=== PATIENT | male | born 1970 | race African-American/Black ===

== ENCOUNTER → 2018-06-07 | Outpatient (CLI) | payer OTHER ==
[~2018-06-07] MED LIST: METHACHOLINE KIT (J7674) INH ONE
--- NOTE | 2018-06-07 07:26 | PFTRPT ---
Height: 73.00 Inches Weight: 215.00 Lbs BSA: 2.22 Diagnosis: R06.00 DATE OF PROCEDURE: 06/07/2018 ORDERED BY: Samy Torrez PA-C Spirometry: Study of excellent technical quality. Forced vital capacity normal. FEV1 in proportion. Obstructive index is, therefore, normal. Flow Volume Loop: Expiratory limb of the flow volume loop is normal. Lung Volumes: Total lung capacity normal. Residual volume is in proportion. Diffusing Capacity: Diffusing capacity is minimally reduced but is appropriate for alveolar volume. Hemoglobin: Hemoglobin acceptable at 13.7. Airway Mechanics: Airway resistance and conductance are normal. IMPRESSION: Minimal reduction in the absolute diffusing capacity. Please correlate clinically. MTDD
--- NOTE | 2018-06-07 08:09 | PFTRPT ---
Height: 73.00 Inches Weight: 215.00 Lbs BSA: 2.22 Diagnosis: R06.00 DATE OF PROCEDURE: 06/07/2018 ORDERED BY: SUAD Kilgore INTERPRETATION: Study of excellent technical quality. Under protocol, methacholine was administered. Even after a total of 25 mg or 188.875 CDUs, no provocation dose ever achieved. IMPRESSION: Negative methacholine challenge study. MTDD
== END ==
LOC: M CARPUL 06:39
PROVIDERS: ATTEND Physician Assistant
DX: R06.00 Dyspnea, unspecified (principal)
CPT/HCPCS: 36415; 85018; 94010; 94070; 94726; 94729; J7674

== ENCOUNTER → 2018-07-19 | Outpatient (CLI) | payer OTHER ==
--- NOTE | 2018-07-19 15:37 | REP ---
HISTORY: Knee pain. COMPARISON: None. There is soft tissue calcifications in the proximal calf of uncertain etiology. If the patient has been involved in trauma in the past this could be secondary to myositis ossificans, but would need to be correlated clinically. These calcifications are only partially imaged. The examination is otherwise unremarkable. Electronically Signed by Moose Bernal DO 07/19/2018 03:50 P
== END ==
LOC: M WUC 11:50
PROVIDERS: ATTEND Physician Assistant
DX: M25.562 Pain in left knee (principal)

== ENCOUNTER 2021-01-27 16:04 | Observation (INO) | payer OTHER ==
[~2021-01-27] VITALS: Ht 182.9 cm; Wt 103.0 kg
--- OUTSIDE RECORDS SUMMARY | 2021-01-27 16:13 | CCD ---
Author Author [facility] Organization [facility] Address Unknown Phone Unavailable Care Team Providers Care Instructional Technology Coordinator Name Role Phone Treasure, Rafael PA Unavailable Unavailable Treasure, Rafael PA Unavailable Unavailable Treasure, Rafael PA Unavailable Unavailable Treasure, Rafael PA Unavailable Unavailable Treasure, Rafael PA Unavailable Unavailable Treasure, Rafael PA Unavailable Unavailable Treasure, Rafael PA Unavailable Unavailable Treasure, Rafael PA Unavailable Unavailable Treasure, Rafael PA Unavailable Unavailable Treasure, Rafael PA Unavailable Unavailable Treasure, Rafael PA Unavailable Unavailable Treasure, Rafael PA Unavailable Unavailable Treasure, Rafael PA Unavailable Unavailable Treasure, Rafael PA Unavailable Unavailable Treasure, Rafael PA Unavailable Unavailable Treasure, Rafael PA Unavailable Unavailable Treasure, Rafael PA Unavailable Unavailable Treasure, Rafael PA Unavailable Unavailable Treasure, Rafael PA Unavailable Unavailable Treasure, Rafael PA Unavailable Unavailable Treasure, Rafael PA Unavailable Unavailable Treasure, Rafael PA Unavailable Unavailable Treasure, Rafael PA Unavailable Unavailable Treasure, Rafael PA Unavailable Unavailable Treasure, Rafael PA Unavailable Unavailable Treasure, Arfael PA Unavailable Unavailable Treasure, Rafael PA Unavailable Unavailable Treasure, Rafael PA Unavailable Unavailable Treasure, Rafael PA Unavailable Unavailable Treasure, Rafael PA Unavailable Unavailable Treasure, Rafael PA Unavailable Unavailable Treasure, Rafael PA Unavailable Unavailable Treasure, Rafael PA Unavailable Unavailable Treasure, Rafael PA Unavailable Unavailable Treasure, Rafael PA Unavailable Unavailable Treasure, Rafael PA Unavailable Unavailable Treasure, Rafael PA Unavailable Unavailable Treasure, Rafael PA Unavailable Unavailable Treasure, Rafael PA Unavailable Unavailable Treasure, Rafael PA Unavailable Unavailable Traesure, Rafael PA Unavailable Unavailable Treasure, Rafael PA Unavailable Unavailable Treasure, Rafael PA Unavailable Unavailable Treasure, Rafael PA Unavailable Unavailable Treasure, Rafael PA Unavailable Unavailable Treasure, Rafael PA Unavailable Unavailable Treasure, Rafael PA Unavailable Unavailable Treasure, Rafael PA Unavailable Unavailable Treasure, Rafael PA Unavailable Unavailable Treasure, Rafael PA Unavailable Unavailable Treasure, Rafael PA Unavailable Unavailable Treasure, Rafael PA Unavailable Unavailable Treasure, Rafael PA Unavailable Unavailable Treasure, Rafael PA Unavailable Unavailable INES, JANNETH PA Unavailable Unavailable INES, JANNETH PA Unavailable Unavailable INES, JANNETH PA Unavailable Unavailable INES, JANNETH PA Unavailable Unavailable INES, JANNETH PA Unavailable Unavailable INES, JANNETH PA Unavailable Unavailable INES, JANNETH PA Unavailable Unavailable INES, JANNETH PA Unavailable Unavailable INES, JANNETH PA Unavailable Unavailable INES, JANNETH PA Unavailable Unavailable INES, JANNETH PA Unavailable Unavailable INES, JANNETH PA Unavailable Unavailable INES, JANNETH PA Unavailable Unavailable INES, JANNETH PA Unavailable Unavailable INES, JANNETH PA Unavailable Unavailable INES, JANNETH PA Unavailable Unavailable INES, JANNETH PA Unavailable Unavailable INES, JANNETH PA Unavailable Unavailable INES, JANNETH PA Unavailable Unavailable INES, JANNETH PA Unavailable Unavailable INES, JANNETH PA Unavailable Unavailable INES, JANNETH PA Unavailable Unavailable INES, JANNETH PA Unavailable Unavailable INES, JANNETH PA Unavailable Unavailable INES, JANNETH PA Unavailable Unavailable INES, JANNETH PA Unavailable Unavailable INES, JANNETH PA Unavailable Unavailable INES, JANNETH PA Unavailable Unavailable INES, JANNETH PA Unavailable Unavailable INES, JANNETH PA Unavailable Unavailable INES, JANNETH PA Unavailable Unavailable INES, JANNETH PA Unavailable Unavailable INES, JANNETH PA Unavailable Unavailable INES, JANNETH PA Unavailable Unavailable INES, JANNETH PA Unavailable Unavailable INES, JANNETH PA Unavailable Unavailable Re-disclosure Warning The records that you are about to access may contain information from federally-assisted alcohol or drug abuse programs. If such information is present, then the following federally mandated warning applies: This information has been disclosed to you from records protected by federal confidentiality rules (42 CFR part 2). The federal rules prohibit you from making any further disclosure of this information unless further disclosure is expressly permitted by the written consent of the person to whom it pertains or as otherwise permitted by 42 CFR part 2. A general authorization for the release of medical or other information is NOT sufficient for this purpose. The Federal rules restrict any use of the information to criminally investigate or prosecute any alcohol or drug abuse patient.The records that you are about to access may contain highly sensitive health information, the redisclosure of which is protected by Article 27-F of the [facility] Public Health law. If you continue you may have access to information: Regarding HIV / AIDS; Provided by facilities licensed or operated by the [facility] Office of Mental Health; or Provided by the [facility] Office for People With Developmental Disabilities. If such information is present, then the following [facility] mandated warning applies: This information has been disclosed to you from confidential records which are protected by state law. State law prohibits you from making any further disclosure of this information without the specific written consent of the person to whom it pertains, or as otherwise permitted by law. Any unauthorized further disclosure in violation of state law may result in a fine or fdc sentence or both. A general authorization for the release of medical or other information is NOT sufficient authorization for further disc losure. Family History Family Member Name Family Member Gender Family Member Status Date o f Status Description Data Source(s) Unknown Male Problem [facility] ([facility]) Unknown Unknown Problem [facility] ([facility], [facility]) Encounters Encounter Providers Location Date Indications Data Source(s ) Outpatient Attender: JANNETH peters 09/30/2020 03:15:00 PM EDT [facility] ([facility]) Outpatient Attender: Rafael SAMANIEGO Family Medicine [facility] 09/08/2020 10:00:00 AM EDT [facility] ([facility]) Medications Medication Brand Name Start Date Product Form Dose Route Admi nistrative Instructions Pharmacy Instructions Status Indications Reaction Description Data Source(s) 0.005 % 09/30/2020 12:00:00 AM EDT drops 2 INSTILL 1 DROP INTO BOTH EYES EVERY NIGHT INSTILL 1 DROP INTO BOTH EYES EVERY NIGHT SOLD: 09/30/2020 [facility] 0.005 % 09/30/2020 12:00:00 AM EDT drops 2 INSTILL 1 DROP INTO BOTH EYES EVERY NIGHT INSTILL 1 DROP INTO BOTH EYES EVERY NIGHT SOLD: 11/01/2020 [facility] Methylprednisolone Sodium Succinate To 125 MG 09/30/2020 1 2:00:00 AM EDT completed [facility] ([facility], [facility]) Medication administered onsite 20 mg 09/30/2020 12:00:00 AM EDT tablet 6 TAKE ONE TABLET BY MOUTH TWICE A DAY FOR 3 DAYS TAKE ONE TABLET BY MOUTH TWICE A DAY FOR 3 DAYS SOLD: 2020 [facility] Prednisone 20 MG Oral Tablet Prednisone 09/30/2020 12:00:00 AM EDT ORAL active [facility] ([facility]) 0.005 % 08/10/2020 12:00:00 AM EDT drops 2 INSTILL ONE DROP IN EACH EYE AT BEDTIME INSTILL ONE DROP IN EACH EYE AT BEDTIME SOLD: 08/17/2020 [facility] 0.005 % 07/22/2020 12:00:00 AM EDT drops 2 INSTILL 1 DROP IN EACH EYE AT BEDTIME INSTILL 1 DROP IN EACH EYE AT BEDTIME SOLD: 07/22/2020 [facility] Insurance Providers Payer name Policy type / Coverage type Policy ID Covered alliance party ID Covered alliance party's relationship to holm Policy Holm Plan Information [facility] [employer] [id number] Self [id number] [facility] [id number] [facility] [employer] [id number] Self [id number] [facility] ACTIVE DUTY [id number] SP [id number] [facility] (2018) Health Maintenance Organization (O) [id number] Self [id number] Problems, Conditions, and Diagnoses No Information Surgeries/Procedures Procedure Description Date Indications Data Source(s) Therapeutic, Prophylactic Or Diagnostic Injection Subq/Im 09/30/2020 12:00:00 AM [facility]T [facility]) OFFICE OUTPATIENT VISIT 15 MINUTES 09/30/2020 12:00:00 AM EDT [facility]) OFFICE OUTPATIENT VISIT 25 MINUTES 09/08/2020 12:00:00 AM EDT [facility] Results No Information Social History Code Duration Value Status Description Data Source(s ) Smoking 09/08/2020 12:00:00 AM EDT Patient has never smoked co mpleted Patient has never smoked [facility] ([facility]) Vital Signs ID Date Data Source UNK Name Value Range Interpretation Code Description Data Source(s) Systolic blood pressure 125 mm[Hg] 125 mm[Hg] [facility] Diastolic blood pressure 73 mm[Hg] 73 mm[Hg] [facility]) Oxygen saturation in Arterial blood by Pulse oximetry 97 % 97 % [facility]) Respiratory rate 16 /min 16 /min [facility] ( [facility]) Heart rate 83 /min 83 /min [facility]) Body temperature 96.6 [degF] 96.6 [degF] [facility] ([facility], [facility]) Body weight 223.00 [lb_av] 223.00 [lb_av] [facility] ([facility], [facility]) Body height 73 [in_i] 73 [in_i] [facility] ([facility]) 6'1" Body mass index (BMI) [Ratio] 29.4 kg/m2 29.4 k g/m2 [facility] ([facility]) Systolic blood pressure 118 mm[Hg] 118 mm[Hg] [facility] Diastolic blood pressure 78 mm[Hg] 78 mm[Hg] [facility] ([facility]) Body height 72.0 [in_i] 72.0 [in_i] [facility] ([facility]) 6'0" Body weight 228.19 [lb_av] 228.19 [lb_av] [facility] ([facility]) Body mass index (BMI) [Ratio] 30.9 kg/m2 30.9 k g/m2 [facility] ([facility]) Heart rate 71 /min 71 /min [facility] ([facility]) Respiratory rate 14 /min 14 /min [facility] ( [facility]) Body temperature 97.4 [degF] 97.4 [degF] [facility] ([facility]) Oxygen saturation in Arterial blood by Pulse oximetry 98 % 98 % [facility] ([facility]) [place] body weight 178 [lb_av] 178 [lb_av] [facility] ([facility]) Systolic blood pressure 132 mm[Hg] 132 mm[Hg] M EDENT ([facility]) Diastolic blood pressure 76 mm[Hg] 76 mm[Hg] [facility] ([facility]) Body height 72.0 [in_i] 72.0 [in_i] [facility] ([facility]) 6'0" Body weight 239.00 [lb_av] 239.00 [lb_av] [facility] ([facility]) Body mass index (BMI) [Ratio] 32.4 kg/m2 32.4 k g/m2 [facility] ([facility]) Heart rate 91 /min 91 /min [facility] ([facility]) Respiratory rate 18 /min 18 /min [facility] ( [facility]) Body temperature 97.7 [degF] 97.7 [degF] [facility] ([facility]) Oxygen saturation in Arterial blood by Pulse oximetry 96 % 96 % [facility] ([facility]) [place] body weight 178 [lb_av] 178 [lb_av] [facility] T ([facility])
[2021-01-27] MEDS ORDERED: LATA0.0015 (16:20)
[2021-01-27] MEDS ORDERED: DORZ2SOL4 OU (16:20)
[2021-01-27] MEDS ORDERED: vitamin D (16:20)
[2021-01-27] MEDS ORDERED: LISI20TA33 PO (16:20)
[2021-01-27] MEDS ORDERED: BRIM1OPD OU (16:20)
--- OUTSIDE RECORDS SUMMARY | 2021-01-27 17:28 | CCD ---
Author Author [facility] Organization [facility] Address Unknown Phone Unavailable Care Team Providers Care Industrial Rehabilitation Consultant Name Role Phone Treasure, Rafael PA Unavailable [...] Unavailable Unavailable Treasure, Rafael PA Unavailable Unavailable Tresaure, Rafael PA Unavailable Unavailable Treasure, Rafael PA [...] is protected by Article 27-F of the [facility] Public Health law. If you continue you may have access to information: Regarding HIV / AIDS; Provided by facilities licensed or operated by the [facility] Office of Mental Health; or Provided by the [facility] Office for People With Developmental Disabilities. If such information is present, then the following [facility] mandated warning applies: This information has [...] Description Data Source(s) Unknown Male Problem [facility] ([facility]) Unknown Unknown Problem [facility] ([facility], [facility]) Encounters Encounter Providers Location Date Indications Data Source(s ) Outpatient Attender: JANNETH peters 09/30/2020 03:15:00 PM EDT [facility] ([facility]) Outpatient Attender: Rafael SAMANIEGO Family Medicine [facility] 09/08/2020 10:00:00 AM EDT [facility] ([facility]) Medications Medication Brand Name Start Date [...] 09/30/2020 1 2:00:00 AM EDT completed [facility] ([facility], [facility]) Medication administered onsite 20 mg 09/30/2020 12:00:00 AM EDT tablet 6 TAKE ONE TABLET BY MOUTH TWICE A DAY FOR 3 DAYS TAKE ONE TABLET BY MOUTH TWICE A DAY FOR 3 DAYS SOLD: 2020 [facility] Prednisone 20 MG Oral Tablet Prednisone 09/30/2020 12:00:00 AM EDT ORAL active [facility] ([facility]) 0.005 % 08/10/2020 12:00:00 AM EDT drops [...] type / Coverage type Policy ID Covered democrat ID Covered democrat's relationship to holm Policy Holm Plan Information [facility] [id number] [facility] [id number] Self [id number] [facility] [id number] Self [id number] [facility] ACTIVE DUTY [id number] [facility] (2018) Health Maintenance Organization (O) [id number] Self [id number] Problems, Conditions, and Diagnoses No Information Surgeries/Procedures Procedure Description Date Indications Data Source(s) Therapeutic, Prophylactic Or Diagnostic Injection Subq/Im 09/30/2020 12:00:00 AM EDT [facility] ([facility]) OFFICE OUTPATIENT VISIT 15 MINUTES 09/30/2020 12:00:00 AM EDT [facility] ([facility], [facility]) OFFICE OUTPATIENT VISIT 25 MINUTES 09/08/2020 12:00:00 AM EDT [facility] ([facility]) Results No Information Social History Code Duration Value Status Description Data Source(s ) Smoking 09/08/2020 12:00:00 AM EDT Patient has never smoked co mpleted Patient has never smoked [facility] ([facility]) Vital Signs ID Date Data Source UNK Name Value Range Interpretation Code Description Data Source(s) Systolic blood pressure 125 mm[Hg] 125 mm[Hg] M [facility]ENT ([facility], [facility]) Diastolic blood pressure 73 mm[Hg] 73 mm[Hg] [facility] ([facility], [facility]) Heart rate 83 /min 83 /min [facility] ([facility], [facility]) Respiratory rate 16 /min 16 /min [facility]) Oxygen saturation in Arterial blood by Pulse oximetry 97 % 97 % [facility], [facility]) Body temperature 96.6 [degF] 96.6 [degF] [facility] ([facility], [facility]) Body weight 223.00 [lb_av] 223.00 [lb_av] [facility] ([facility], [facility]) Body height 73 [in_i] 73 [in_i] [facility] ([facility] 6'1" Body mass index (BMI) [Ratio] 29.4 kg/m2 29.4 k g/m2 [facility] ([facility], [facility]) Systolic blood pressure 118 mm[Hg] 118 mm[Hg] M EDENT ([facility]) Diastolic blood pressure 78 mm[Hg] 78 mm[Hg] [facility] ([facility]) Body height 72.0 [in_i] 72.0 [in_i] [facility] ([facility]) 6'0" Body weight 228.19 [lb_av] 228.19 [lb_av] [facility] T ([facility]) Body mass index (BMI) [Ratio] 30.9 kg/m2 30.9 k g/m2 [facility] ([facility]) Heart rate 71 /min 71 /min [facility] ([facility]) Respiratory rate 14 /min 14 /min [facility] ( [facility]) Body temperature 97.4 [degF] 97.4 [degF] [facility] ([facility]) Oxygen saturation in Arterial blood by Pulse oximetry 98 % 98 % [facility] ([facility]) [place] body weight 178 [lb_av] 178 [lb_av] [facility] T ([facility]) Systolic blood pressure 132 mm[Hg] 132 mm[Hg] M EDENT ([facility]) Diastolic blood pressure 76 mm[Hg] 76 mm[Hg] [facility] ([facility]) Body height 72.0 [in_i] 72.0 [in_i] [facility] ([facility]) 6'0" Body weight 239.00 [lb_av] 239.00 [lb_av] MED[facility] T ([facility]) Body mass index (BMI) [Ratio] 32.4 kg/m2 32.4 k g/m2 [facility] ([facility]) Heart rate 91 /min 91 /min [facility] ([facility]) Respiratory rate 18 /min 18 /min [facility] ( [facility]) Body temperature 97.7 [degF] 97.7 [degF] [facility] ([facility]) Oxygen saturation in Arterial blood by Pulse oximetry 96 % 96 % [facility] ([facility]) [place] body weight 178 [lb_av] 178 [lb_av] [facility] T ([facility])
[2021-01-27 17:41] LABS: CALCIUM LEVEL 8.8 MG/DL (8.5-10.1); CREATININE FOR GFR 2.93 MG/DL (0.70-1.30); GLOMERULAR FILTRATION RATE 29.5 (>56); POTASSIUM SERUM 5.2 MEQ/L (3.5-5.1)
[2021-01-27] MEDS ORDERED: NS 1,000 ML IV SCH (17:50)
[2021-01-27] MEDS: NS 1,000 ML IV SCH (17:55)
[2021-01-27] MEDS ORDERED: XALA0.007 OU (17:57)
[2021-01-27] MEDS ORDERED: D31000TA2 PO (17:57)
--- OUTSIDE RECORDS SUMMARY | 2021-01-27 17:59 | CCD ---
Author Author [facility] Organization [facility] Address Unknown Phone Unavailable Care Team Providers [facility] Name Role Phone Treasure, Rafael PA Unavailable [...] is protected by Article 27-F of the [facility] Public Health law. If you continue you may have access to information: Regarding HIV / AIDS; Provided by facilities licensed or operated by the [facility] Office of Mental Health; or Provided by the [facility] Office for People With Developmental Disabilities. If such information is present, then the following [facility] mandated warning applies: This information has [...] law may result in a fine or detention sentence or both. A general authorization for the release of medical or other information is NOT sufficient authorization for further disc losure. Family History Family Member Name Family Member Gender Family Member Status Date o f Status Description Data Source(s) Unknown Male Problem MEDENT ([facility]) Unknown Unknown Problem MEDENT ([facility], [facility]) Encounters Encounter Providers Location Date Indications Data Source(s ) Outpatient Attender: JANNETH peters 09/30/2020 03:15:00 PM EDT [facility] ([facility], [facility]) Outpatient Attender: Rafael SAMANIEGO [facility] 09/08/2020 10:00:00 AM EDT MED[facility] ([facility]) Medications Medication Brand Name Start Date Product [...] 09/30/2020 1 2:00:00 AM EDT completed MEDENT ([facility], [facility]) Medication administered onsite 20 mg 09/30/2020 12:00:00 AM EDT tablet 6 TAKE ONE TABLET BY MOUTH TWICE A DAY FOR 3 DAYS TAKE ONE TABLET BY MOUTH TWICE A DAY FOR 3 DAYS SOLD: 2020 [facility] Prednisone 20 MG Oral Tablet Prednisone 09/30/2020 12:00:00 AM EDT ORAL active MED[facility] ([facility], [facility]) 0.005 % 08/10/2020 12:00:00 AM EDT [...] type / Coverage type Policy ID Covered libertarian ID Covered libertarian's relationship to holm Policy Holm Plan Information [facility] [id number] [facility] [id number] Self [id number] [facility] [id number] Self [id number] [facility] ACTIVE DUTY [id number] [facility] (2018) Health Maintenance Organization (O) [id number] Self [id number] Problems, Conditions, and Diagnoses No Information Surgeries/Procedures Procedure Description Date Indications Data Source(s) Therapeutic, Prophylactic Or Diagnostic Injection Subq/Im 09/30/2020 12:00:00 AM EDT MED[facility] ([facility], [facility]) OFFICE OUTPATIENT VISIT 15 MINUTES 09/30/2020 12:00:00 AM EDT MEDENT ([facility], [facility]) OFFICE OUTPATIENT VISIT 25 MINUTES 09/08/2020 12:00:00 AM EDT MED[facility] ([facility]) Results No Information Social History Code Duration Value Status Description Data Source(s ) Smoking 09/08/2020 12:00:00 AM EDT Patient has never smoked co mpleted Patient has never smoked MED[facility] ([facility]) Vital Signs ID Date Data Source UNK Name Value Range Interpretation Code Description Data Source(s) Systolic blood pressure 125 mm[Hg] 125 mm[Hg] M EDENT ([facility], [facility]) Diastolic blood pressure 73 mm[Hg] 73 mm[Hg] MED[facility] ([facility], [facility]) Heart rate 83 /min 83 /min MED[facility] ([facility]) Respiratory rate 16 /min 16 /min [facility] ( [facility], [facility]) Oxygen saturation in Arterial blood by Pulse oximetry 97 % 97 % [facility] ([facility]) Body temperature 96.6 [degF] 96.6 [degF] [facility] ([facility], [facility]) Body weight 223.00 [lb_av] 223.00 [lb_av] MEDEN T ([facility], [facility]) Body height 73 [in_i] 73 [in_i] [facility] ([facility] 6'1" Body mass index (BMI) [Ratio] 29.4 kg/m2 29.4 k g/m2 [facility] ([facility], [facility]) Systolic blood pressure 118 mm[Hg] 118 mm[Hg] M EDENT ([facility]) Diastolic blood pressure 78 mm[Hg] 78 mm[Hg] [facility] ([facility]) Body height 72.0 [in_i] 72.0 [in_i] MEDENT ([facility]) 6'0" Body weight 228.19 [lb_av] 228.19 [lb_av] MEDEN T ([facility]) Body mass index (BMI) [Ratio] 30.9 kg/m2 30.9 k g/m2 [facility] ([facility]) Heart rate 71 /min 71 /min [facility] ([facility]) Respiratory rate 14 /min 14 /min MED[facility] ( [facility]) Body temperature 97.4 [degF] 97.4 [degF] MED[facility] ([facility]) Oxygen saturation in Arterial blood by Pulse oximetry 98 % 98 % [facility] ([facility]) Gattman body weight 178 [lb_av] 178 [lb_av] MEDEN T ([facility]) Systolic blood pressure 132 mm[Hg] 132 mm[Hg] M EDENT ([facility]) Diastolic blood pressure 76 mm[Hg] 76 mm[Hg] [facility] ([facility]) Body height 72.0 [in_i] 72.0 [in_i] MED[facility] ([facility]) 6'0" Body weight 239.00 [lb_av] 239.00 [lb_av] MEDEN T ([facility]) Body mass index (BMI) [Ratio] 32.4 kg/m2 32.4 k g/m2 MED[facility] ([facility]) Heart rate 91 /min 91 /min [facility] ([facility]) Respiratory rate 18 /min 18 /min MED[facility] ( [facility]) Body temperature 97.7 [degF] 97.7 [degF] [facility] ([facility]) Oxygen saturation in Arterial blood by Pulse oximetry 96 % 96 % MED[facility] ([facility]) Gattman body weight 178 [lb_av] 178 [lb_av] MEDEN T ([facility])
[2021-01-27] MEDS ORDERED: HOME MED LIST COMPLETE! XX SCH (18:00)
[2021-01-27 18:02] LABS: BASO % 0.5 % (0.0-1.0); EOS % 0.5 % (0.0-3.0); HEMATOCRIT 47.1 % (42.0-52.0); LYMPH # 1.6 10^3/uL (1.5-5.0); MEAN CORPUSCULAR HEMOGLOBIN 29.9 pg (27.0-33.0); MEAN CORPUSCULAR HGB CONC 31.8 g/dl (32.0-36.5); MONO # 0.5 10^3/uL (0.0-0.8); MONO % 8.3 % (2.0-8.0); NEUTROPHILS # 4.3 10^3/uL (1.5-8.5); NEUTROPHILS % 66.2 % (36.0-66.0); PLATELET COUNT, AUTOMATED 257 10^3/uL (150-450); RED BLOOD COUNT 5.01 10^6/uL (4.30-6.10); WHITE BLOOD COUNT 6.5 10^3/uL (4.0-10.0)
[2021-01-27] MEDS: amLODIPine 5 MG TAB PO SCH (18:05)
--- NOTE | 2021-01-27 18:50 | REP ---
INDICATION: ROSIE COMPARISON: None TECHNIQUE: Real time salazar scale ultrasound examination using curved array transducer. FINDINGS: Kidneys are normal in contour, size, echogenicity, and reniform shape. No hydronephrosis, nephrolithiasis, or renal mass lesion. Bladder is unremarkable and bilateral ureteral jets are identified. Right kidney measures 10.0 x 5.4 x 3.9 cm and includes 1.8 cm upper pole cyst. Left kidney measures 10.3 x 5.1 x 6.1 cm. IMPRESSION: 1. Essentially normal renal ultrasound. <Electronically signed by Adebayo Britt > 01/27/21 [id number]
--- NOTE | 2021-01-27 18:54 | HPEPDOC ---
[facility] Medical History & Physical Date of Admission Jan 27, 2021 Date of Service: Jan 27, 2021 Attending Physician: Rosette Drake MD History and Physical CHIEF COMPLAINT: Abnormal labs, sent in by PCP HISTORY OF PRESENT ILLNESS: Patient is a 51-year-old -[place] male with past medical history of hypertension, questionable kidney disease who presented to [facility] emergency room after being told to by his primary care provider at the [facility]. On 01/25/2021 the patient had outpatient labs drawn by his primary care provider. Today he went in for a routine physical and abnormal labs were reviewed with him. The patient denied any nausea, vomiting, abdominal pain, decreased urinary output, d ecreased appetite, palpitations, dry mouth, lightheadedness, dysuria, shortness of breath, chest pain. He states he hydrates very well during the day normally. Labs showed acute kidney injury. His provider attempted to get him in to see nephrology in [place]; however, they stated they would not be able to see him for quite some time. He was then advised to come to the emergency room for further evaluation. He admits to seeing a patient resource specialist over a year ago at the [facility] in [place]. He had an ultrasound done and was told that he would be followed up with. He has not returned to see them since and has remained on his lisinopril. In the emergency room the patient had no acute complaints. Vital signs showed some mild hypertension with systolic blood pressure 160 mmHg. Repeat labs were done showing a potassium of 5.2, creatinine 2.93, BUN 56. The patient did not appear dry and had no swelling in the lower extremities. ECG showed no abnormal findings. UA was ordered along with renal ultrasound. Normal saline was started. Case was discussed with nephrology staff command and control officer. The patient was ultimately admitted under observation status with hospitalist service for further workup and treatment of acute kidney injury. Note: [facility] records from [place] were requested on admission REVIEW OF SYSTEMS: CONSTITUTIONAL: Denies lack of energy, unexplained weight gain or weight loss, loss of appetite, fever, night sweats EYES: Denies eye drainage, eye pain, visual changes, dry/irritated eye EARS, NOSE, MOUTH, THROAT: Denies difficulty hearing, ringing in ears, mouth sores, loose teeth, sore throat, facial numbness or pain NECK: Denies swollen glands CARDIOVASCULAR: Denies irregular heartbeat, racing heart, chest pains, swelling of feet or legs, pain in legs with walking RESPIRATORY: Denies shortness of breath, night sweats, wheezing, sputum production, oxygen at home, coughing up blood, cough lasting > 1 month GASTROINTESTINAL: Denies abdominal pain, constipation, bloody stool, diarrhea, heartburn, nausea, vomiting GENITOURINARY: Denies painful urination, bloody urine, frequent urination, urgency, leaking urine, impotence MUSCULOSKELETAL: Denies joint pain, muscle pain, leg swelling INTEGUMENTARY: Denies rash, itching, new skin lesion, change in existing skin lesion, hair loss or increase, breast changes. NEUROLOGICAL: Denies headaches, dizziness, difficulty walking, numbness or ti ngling PSYCHIATRIC: Denies depression, anxiety, recurrent bad thoughts, mood swings, hallucinations PAST MEDICAL HISTORY: Hypertension ? Kidney disease PAST SURGICAL HISTORY: None FAMILY HISTORY: Motherhypertension, diabetes. SOCIAL HISTORY: Denies smoking, illicit drug use. Admits to occasional alcohol use. Lives locally with his family. He follows both with the [facility] in [place] and has another primary care provider Dr. Amin. Prior patient resource specialist -[facility] ALLERGIES: Please see below. HOME MEDICATIONS: Please see below. PHYSICAL EXAMINATION: VS: Stable on room air CONSTITUTIONAL: No acute distress, resting comfortably, AAO x 3 EYES: PERRLA, EOM intact HENT, MOUTH: Normocephalic, atraumatic, moist mucous membranes NECK: SUPPLE, no JVD, no lymphadenopathy, no carotid bruit CV: Regular rate and rhythm, S1S2 normal, no murmurs/rubs/gallops RESPIRATORY: Clear to auscultation bilaterally, no rales/rhonchi/wheezes GI: BS positive in 4 quadrants, soft, nontender, nondistended, no rebound or guarding, no organomegaly : Deferred MUSCULOSKELETAL: Normal ROM. No cyanosis, clubbing, swelling, joint deformity, extremity edema INTEGUMENTARY: Intact, no rashes, no lesions, no erythema NEUROLOGIC: Cranial Nerves II-XII are intact, no focal deficits PSYCHIATRIC: Mood and affect are normal LABORATORY DATA: Please see below IMAGING: Follow up renal ultrasound ASSESSMENT: 51-year-old -[place] African male with past medical history of hypertension, questionable kidney disease admitted under observation status with hospitalist service for further workup and treatment of acute kidney injury. PLAN: Acute kidney injury -On lisinopril and has ? underlying chronic kidney disease, was seen previously by nephrology over a year ago in [facility] -Creatinine 2.93, BUN 56. F/u [facility] records to find out baseline creatinine -Holding lisinopril. -Starting IV fluids at 125 mL/h -Follow-up UA, renal ultrasound -Nephrology consulted Acute hyperkalemia secondary to acute kidney injury -Potassium mildly elevated at 5.2 -ECG no acute changes -Follow-up repeat CMP in the a.m. -Treatment for ROSIE above HTN -Stop lisinopril -Start amlodipine DVT px -heparin SC DISPOSITION: Admitted under observation status. Nephrology consulted to see in the AM. Plan is d/c home when medically improved. Vital Signs Vital Signs Date Time Temp Pulse Resp B/P (MAP) Pulse Ox O2 Delivery O2 Flow Rate FiO2 01/27/21 16:06 97.3 80 17 165/95 (118) 99 Room Air Laboratory Data Labs 24H Laboratory Tests 2 01/27/21 17:06: Anion Gap 7L, Glomerular Filtration Rate 29.5L, Calcium Level 8.8 01/27/21 17:53: Immature Granulocyte % (Auto) 0.5, Neutrophils (%) (Auto) 66.2H, Lymphocytes (%) (Auto) 24.0, Monocytes (%) (Auto) 8.3H, Eosinophils (%) (Auto) 0.5, Basophils (%) (Auto) 0.5, Neutrophils # (Auto) 4.3, Lymphocytes # (Auto) 1.6, Monocytes # (Auto) 0.5, Eosinophils # (Auto) 0.0, Basophils # (Auto) 0.0, Nucleated Red Blood Cells % (auto) 0.0 CBC/BMP Laboratory Tests 01/27/21 17:06 01/27/21 17:53 Home Medications Scheduled Brimonidine Tartrate (Alphagan P) 0.1% 5ML Drops, 1 DROP OU BID Cholecalciferol (Vitamin D3) (Vitamin D3) 1,000 Unit Tablet, 1,000 UNITS PO DAILY Dorzolamide HCl (Dorzolamide HCl) 2% 10ML Drops, 1 DROP OU BID Latanoprost (Xalatan) 0.005% 2.5ML Drops, 1 DROP OU QHS Lisinopril (Lisinopril) 20 Mg Tablet, 20 MG PO DAILY Allergies Coded Allergies: No Known Allergies (Unverified , 05/17/18) A-FIB/CHADSVASC A-FIB History Current/History of A-Fib/PAF?: No Current PO Anticoag Therapy: No Age/Risk Factor Scoring CHADSVASC: CHADSVASC Response (Comments) Value Age Risk Factor Age < 65 years old 0 Gender Risk Factor Male 0 Hx of CHF No 0 Hx of HTN Yes 1 Hx of Stroke/TIA/or VTE No 0 Hx of Diabetes No 0 Hx of Vascular Disease No 0 Total 1 Treatment Treatment ordered: Other Other anticoagulant ordered: heparin Rosette Drake MD Jan 27, 2021 18:54
[2021-01-27 19:19] LABS: INR 0.98; PROTHROMBIN TIME 13.4 SECONDS (12.7-14.5)
[2021-01-27 19:20] LABS: PARTIAL THROMBOPLASTIN TIME 36.2 SECONDS (25.9-37.0)
[2021-01-27 19:50] LABS: ALBUMIN 3.4 GM/DL (3.2-5.2); BILIRUBIN,TOTAL 0.2 MG/DL (0.2-1.0); CALCIUM LEVEL 7.1 MG/DL (8.5-10.1); CREATININE FOR GFR 2.33 MG/DL (0.70-1.30); GLOMERULAR FILTRATION RATE 38.5 (>56); POTASSIUM SERUM 3.6 MEQ/L (3.5-5.1); TOTAL PROTEIN 7.1 GM/DL (6.4-8.2)
[2021-01-27 19:57] LABS: RSV AMPLIFICATION NEGATIVE (NEGATIVE)
[2021-01-28] VITALS: BP 118/76
[2021-01-28] MEDS: NS 1,000 ML IV SCH ×2 (00:17→08:01)
[2021-01-28 05:22] LABS: APPEARANCE, URINE CLEAR (CLEAR); BACTERIA, URINE AUTO NEGATIVE (NEGATIVE); BILIRUBIN, URINE AUTO NEGATIVE (NEGATIVE); BLOOD, URINE BLOOD NEGATIVE (NEGATIVE); COLOR, URINE STRAW (YELLOW); GLUCOSE, URINE (UA) AUTO NEGATIVE (NEGATIVE); KETONE, URINE AUTO NEGATIVE (NEGATIVE); LEUKOCYTE ESTERASE, URINE AUTO NEGATIVE (NEGATIVE); NITRITE, URINE AUTO NEGATIVE (NEGATIVE); PROTEIN, URINE AUTO NEGATIVE (NEGATIVE); RBC, URINE AUTO 0 /HPF (0-3); SQUAMOUS EPITHELIAL CELL UR AU 0 /HPF (0-6); UROBILINOGEN, URINE AUTO 0.2 mg/dL (0.0-2.0); WBC, URINE AUTO 0 /HPF (0-3)
[2021-01-28 05:46] LABS: CREATININE,RANDOM URINE 99.6 MG/DL; TOTAL PROTEIN,RANDOM URINE 8.7 MG/DL (0.0-12.0)
[2021-01-28 05:47] LABS: MEAN CORPUSCULAR HEMOGLOBIN 30.3 pg (27.0-33.0); MEAN CORPUSCULAR HGB CONC 32.6 g/dl (32.0-36.5); MEAN CORPUSCULAR VOLUME 93.1 fl (80.0-96.0); PLATELET COUNT, AUTOMATED 229 10^3/uL (150-450); RED BLOOD COUNT 4.19 10^6/uL (4.30-6.10); WHITE BLOOD COUNT 5.3 10^3/uL (4.0-10.0)
[2021-01-28 06:00] VITALS: BP 112/72
[2021-01-28 06:02] LABS: HEMOGLOBIN 12.7 g/dl (13.5-17.5)
[2021-01-28 06:26] LABS: ALBUMIN 3.2 GM/DL (3.2-5.2); BILIRUBIN,TOTAL 0.5 MG/DL (0.2-1.0); CALCIUM LEVEL 8.6 MG/DL (8.5-10.1); CREATININE FOR GFR 2.43 MG/DL (0.70-1.30); GLOMERULAR FILTRATION RATE 36.6 (>56); POTASSIUM SERUM 4.9 MEQ/L (3.5-5.1); TOTAL PROTEIN 6.6 GM/DL (6.4-8.2)
[2021-01-28] MEDS: HEPARIN SOD (PORCINE) 5000UNITS/ML 1ML VIAL/SYRINGE SQ SCH ×2 (09:00→19:58)
[2021-01-28] MEDS: amLODIPine 5 MG TAB PO SCH (09:00)
--- NOTE | 2021-01-28 13:06 | CR ---
CONSULTATION DATE: 01/28/2021 REQUESTING PHYSICIAN: LOGAN ROCK MD REASON FOR CONSULTATION: Chronic kidney disease versus acute kidney injury. HISTORY OF PRESENT ILLNESS: Mr. Gilmer Hess is previously unknown to me. He is a 51-year-old male with a past medical history of early onset hypertension (patient reports starting antihypertensive therapy in his mid 30s) and history of chronic kidney disease Stage III going back to his mid 30s as well as per the patient). He has previously seen Nephrology through the [facility], however his last visit was a little over a year ago. Patient is unsure if his baseline renal function but tells me that he was told that he has chronic kidney disease Stage III. He had blood work done through his primary care provider at the [facility] and was directed to come to the Emergency Room subsequently. His admission creatinine was 2.9 and the patient was also noted to have a mild non-anion gap metabolic acidosis with mild hyperkalemia. He denied any associated symptoms, did not have any trouble hydrating. No nausea, vomiting or diarrhea. No fevers, no chills, no NSAID use. His blood pressure is controlled with Lisinopril monotherapy. He reports his blood pressure runs on the low side of normal. He reports he has been on Lisinopril for several years now. His NUHA inhibitor was held, he was given IV fluids and a Nephrology evaluation was requested. The patient had a renal ultrasound done which was unremarkable. He also had a urinalysis which was likewise benign. PAST MEDICAL HISTORY: Early onset hypertension, Class I obesity, chronic kidney disease (self-reported as Stage III per the patient). Sleep apnea with CPAP use. PAST SURGICAL HISTORY: None. FAMILY HISTORY: Significant for early onset hypertension in multiple relatives. He denies a known family history of renal disease. ALLERGIES: No known drug allergies. HOME MEDICATIONS: 1. Vitamin D 1000 units daily. 2. Lisinopril 20 mg p.o. daily. 3. Eyedrops. SOCIAL HISTORY: Denies smoking. Denies drug use. Reports occasional alcohol use. Sees Dr. Amin for the past two years but states he has not had blood work through her office. Reports [facility] Was previously seen by [facility] about a year ago. REVIEW OF SYSTEMS: CONSTITUTIONAL: Denies any constitutional symptoms. No weight loss or weight gain, fevers or chills. EYES: No visual changes or tearing. ENT: No mouth ulcers. No odynophagia. No epistaxis. NECK: No lymphadenopathy. CARDIAC: No palpitations. No chest pain. No leg swelling. RESPIRATORY: No shortness of breath. No cough. Reports mild sleep apnea. Uses a CPAP. GASTROINTESTINAL: Denies nausea, vomiting or diarrhea. GENITOURINARY: No dysuria or hematuria. ENDOCRINE: No thyroid issues. MUSCULOSKELETAL: No arthralgias. No myalgias. Reports occasional mild gout in the past. SKIN: No rashes. No ulcers. NEUROLOGIC: No seizure. No syncope. PSYCHIATRIC: No anxiety, no depression. PHYSICAL EXAMINATION: VITAL SIGNS: Temperature is 97.3, pulse is 53, respiratory rate 18, blood pressure is 112/72, saturating 98% on room air. INPUT AND OUTPUT: Urine output today so far is 1.1 liter. Weight is 103 kg. GENERAL: Patient is seen lying in bed. Middle-aged male, well-nourished, awake, alert and oriented x3, comfortable, in no distress. HEENT: Extraocular muscles are intact. Tongue is moist. Oral mucous membranes are moist. There are no oral ulcers. NECK: Supple. Jugular veins are not elevated. HEART: Heart sounds are regular. There is no murmur. There is mild resting bradycardia. Peripheral pulses are 2+. LUNGS: Clear to auscultation. No crackles, rale or rhonchus. ABDOMEN: Soft and nontender. EXTREMITIES: No clubbing, cyanosis or edema. NEUROLOGIC: He is oriented x3, interactive, at baseline mentation. SKIN: Warm and dry. Normal temperature and turgor. LABORATORY DATA: Sodium is 144, potassium is 4.9, bicarbonate is 29, BUN is 53, creatinine is 2.4. Hemoglobin is 12.7, platelets are 229,000. Urinalysis is benign. Negative blood. Negative protein. Negative leukocyte esterase. No proteinuria. Renal ultrasound is unremarkable. He has 10 cm kidneys bilaterally with a simple right renal cyst. No obstruction. INPATIENT MEDICATIONS: He is on Heparin sub q. and he received normal saline which has now been discontinued and is on amlodipine 5 mg p.o. daily. PROBLEMS: 1. ROSIE superimposed on CKD Stage III. Patient reports that he has had chronic kidney disease since he was in his mid 30s. He was previously seen by [facility], however has not had a visit the past year and he was recently told that his renal function has gotten worse and so was sent to the hospital. His baseline renal function is unknown. Prior records are requested. NUHA inhibitor is discontinued. IV fluids can be stopped. Patient is adequately hydrated and he is tolerating oral intake. His renal ultrasound was benign. There is no significant structural nor parenchymal abnormalities. His urinalysis is benign essentially ruling out glomerulonephritis. We will follow him up in the office and prior records for baseline historic renal function are requested. Patient does not take any nephrotoxic medications and has been counseled to avoid NSAIDs. 2. Mild hyperkalemia. Patient has been discontinued off of Lisinopril. There is no further need for IV fluid hydration. He should follow a potassium restricted diet. 3. Hypertension. Lisinopril has been discontinued. He take amlodipine with a holding parameter. He reports a history of early onset hypertension which seems to run in his family. There is no indication of renal artery stenosis based on his current renal ultrasound and his minimal hypertensive requirement. 4. Non-anion gap metabolic acidosis, it has resolved. There is no need for further IV fluid administration at this time. Thank you for involving me in the care of Mr. Hess. I will be happy to follow him along with you.
[2021-01-28 14:00] VITALS: BP 140/78
--- NOTE | 2021-01-28 15:10 | IPNPDOC ---
Date Seen The patient was seen on 01/28/21. Progress Note SUBJECTIVE: Cr slightly improved, stopped fluids as per nephrology. [facility]. Denies issues urinating, chest pain, n/v/d. OBJECTIVE: PHYSICAL EXAMINATION: VS: PLease see below CONSTITUTIONAL: No acute distress, resting comfortably, AAO x 3 EYES: PERRLA, EOM intact HENT, MOUTH: Normocephalic, atraumatic, moist mucous membranes NECK: SUPPLE, no JVD, no lymphadenopathy, no carotid bruit CV: Regular rate and rhythm, S1S2 normal, no murmurs/rubs/gallops RESPIRATORY: Clear to auscultation bilaterally, no rales/rhonchi/wheezes GI: BS positive in 4 quadrants, soft, nontender, nondistended, no rebound or guarding, no organomegaly : Deferred MUSCULOSKELETAL: Normal ROM. No cyanosis, clubbing, swelling, joint deformity, mild b/l lower extremity edema INTEGUMENTARY: Intact, no rashes, no lesions, no erythema NEUROLOGIC: Cranial Nerves II-XII are intact, no focal deficits PSYCHIATRIC: Mood and affect are normal LABORATORY DATA: Please see below IMAGING: Renal ultrasound: unremarkable ASSESSMENT: 51-year-old -[place] male with past medical history of hy pertension, questionable kidney disease admitted under observation status with hospitalist service for further workup and treatment of acute kidney injury. PLAN: Acute kidney injury on CKD Stage III -[facility], continuing to hold lisinopril -Creatinine 2.93--> 2.43. Baseline Cr unknown -Stopped IV fluids -Renal US r/o structural abnormalities -UA neg -Nephrology consulted and will follow him up in office after discharge -Daily labs, continue to avoid nephrotoxic meds Acute hyperkalemia secondary to acute kidney injury, lisinopril -Potassium now wnl -ECG no acute changes -Follow-up repeat CMP -Treatment for ROSIE above, holding ACEi HTN -Stop lisinopril -On amlodipine low dose DVT px -heparin SC DISPOSITION: Admitted under observation status. [facility]. Nephrology has consulted and will see again o/p. Plan is likely d/c home 01/29/21 if Cr continues to improve. VS, I&O, 24H, Fishbone Vital Signs/I&O Vital Signs Date Time Temp Pulse Resp B/P (MAP) Pulse Ox O2 Delivery O2 Flow Rate FiO2 01/28/21 14:00 98.0 66 24 140/78 (98) 99 Room Air I&O- Last 24 Hours up to 6 AM 01/28/21 06:00 Intake Total 1460 ml Output Total 1100 ml Balance 360 ml Laboratory Data 24H LABS Laboratory Tests 2 01/27/21 17:06: Anion Gap 7L, Glomerular Filtration Rate 29.5L, Calcium Level 8.8 01/27/21 17:53: Immature Granulocyte % (Auto) 0.5, Neutrophils (%) (Auto) 66.2H, Lymphocytes (%) (Auto) 24.0, Monocytes (%) (Auto) 8.3H, Eosinophils (%) (Auto) 0.5, Basophils (%) (Auto) 0.5, Neutrophils # (Auto) 4.3, Lymphocytes # (Auto) 1.6, Monocytes # (Auto) 0.5, Eosinophils # (Auto) 0.0, Basophils # (Auto) 0.0, Nucleated Red Blood Cells % (auto) 0.0, Coronavirus (COVID-19)(PCR) NEGATIVE, Influenza Type A (RT-PCR) NEGATIVE, Influenza Type B (RT-PCR) NEGATIVE, Respiratory Syncytial Virus (PCR) NEGATIVE 01/27/21 18:42: Anion Gap 57H, Glomerular Filtration Rate 38.5L, Calcium Level 7.1#L, Total Bilirubin 0.2, Aspartate Amino Transf (AST/SGOT) 13, Alanine Aminotransferase (ALT/SGPT) 21, Alkaline Phosphatase 95, Total Protein 7.1, Albumin 3.4, Albumin/Globulin Ratio 0.9 01/27/21 18:47: Prothrombin Time 13.4, Prothromb Time International Ratio 0.98, Activated Partial Thromboplast Time 36.2 01/28/21 05:03: Urine Color STRAW, Urine Appearance CLEAR, Urine pH 5.0, Urine Specific [place] 1.010, Urine Protein NEGATIVE, Urine Glucose (Auto)(UA) NEGATIVE, Urine Ketones (Auto) NEGATIVE, Urine Blood NEGATIVE, Urine Nitrite NEGATIVE, Urine Bilirubin NEGATIVE, Urine Urobilinogen 0.2, Urine Leukocyte Esterase (Auto) NEGATIVE, Urin e WBC (Auto) 0, Urine RBC (Auto) 0, Urine Hyaline Casts (Auto) 0, Urine Bacteria (Auto) NEGATIVE, Urine Squamous Epithelial Cells 0, Urine Sperm (Auto) , Urine Random Creatinine 99.6, Urine Random Total Protein 8.7 01/28/21 05:36: Nucleated Red Blood Cells % (auto) 0.0, Anion Gap 7L, Glomerular Filtration Rate 36.6L, Calcium Level 8.6#, Total Bilirubin 0.5#, Aspartate Amino Transf (AST/SGOT) 14, Alanine Aminotransferase (ALT/SGPT) 22, Alkaline Phosphatase 93, Total Protein 6.6, Albumin 3.2, Albumin/Globulin Ratio 0.9 CBC/BMP Laboratory Tests 01/27/21 17:06 01/27/21 17:53 01/27/21 18:42 01/28/21 05:36 Rosette Drake MD Jan 28, 2021 15:10
[2021-01-28 21:45] VITALS: BP 132/80
[2021-01-29 05:47] VITALS: BP 115/78
[2021-01-29 06:09] LABS: HEMATOCRIT 38.4 % (42.0-52.0); HEMOGLOBIN 12.5 g/dl (13.5-17.5); MEAN CORPUSCULAR HEMOGLOBIN 30.3 pg (27.0-33.0); MEAN CORPUSCULAR HGB CONC 32.6 g/dl (32.0-36.5); PLATELET COUNT, AUTOMATED 220 10^3/uL (150-450); RED BLOOD COUNT 4.13 10^6/uL (4.30-6.10); WHITE BLOOD COUNT 4.2 10^3/uL (4.0-10.0)
[2021-01-29 06:39] LABS: ALBUMIN 3.2 GM/DL (3.2-5.2); BILIRUBIN,TOTAL 0.4 MG/DL (0.2-1.0); CALCIUM LEVEL 8.6 MG/DL (8.5-10.1); CREATININE FOR GFR 1.98 MG/DL (0.70-1.30); GLOMERULAR FILTRATION RATE 46.4 (>56); POTASSIUM SERUM 4.9 MEQ/L (3.5-5.1); TOTAL PROTEIN 6.3 GM/DL (6.4-8.2)
--- NOTE | 2021-01-29 08:00 | ECGEPIP ---
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
[2021-01-29] MEDS ORDERED: AMLO25TA PO (08:02)
[2021-01-29 08:45] VITALS: BP 138/82
[2021-01-29] MEDS: amLODIPine 5 MG TAB PO SCH (08:45)
[2021-01-29] MEDS: HEPARIN SOD (PORCINE) 5000UNITS/ML 1ML VIAL/SYRINGE SQ SCH (08:45)
--- NOTE | 2021-01-29 13:08 | IPN ---
NEPHROLOGY PROGRESS NOTE DATE: 01/29/2021 SUBJECTIVE: Mr. Hess is seen this morning on his bedside. He is sitting at the edge of bed. He is feeling well and denies any nausea, vomiting, dyspnea, chest pain, fever or chills. He was admitted due to abnormal labs and his condition has improved. On admission his potassium was 5.2, BUN 56 and creatinine 2.93. Today his potassium is 4.9, BUN 38 and creatinine 1.98. PHYSICAL EXAMINATION: Temperature 98.2 degrees Fahrenheit, heart rate 78 per minute and respiratory rate 18 per minute. Blood pressure 138/82 mmHg and oxygen saturation 100%. Head: Atraumatic. Neck: Supple and without JVD or thyroid enlargement. Heart: Sounds are regular. Lungs: Clear to auscultation. Abdomen: Soft and nontender and bowel sounds are normal. Extremities: Without any cyanosis or clubbing. Neurologically: He is awake, alert and oriented times 3. MEDICATIONS IN HOSPITAL: The only medications in the hospital have been: 1. Amlodipine 5 mg daily. 2. Heparin 5000 units q12h. PROBLEMS/PLAN: 1. Acute kidney injury: Kidney function has improved with I.V. fluid hydration. His I.V. fluid has been stopped now and patient has adequate oral intake. Renal ultrasound was unremarkable. 2. Hyperkalemia: His hyperkalemia has resolved and corrected though his potassium is still somewhat on the high side. He will need to follow a low potassium diet as an outpatient. 3. Hypertension: Blood pressure seems well controlled with just amlodipine. If he continues to have hyperkalemia as an outpatient we can add a small dose of diuretic. 4. Disposition: From a renal standpoint patient can be discharged to home and follow up as an outpatient.
--- NOTE | 2021-01-29 17:24 | DS.PDOC ---
Discharge Summary General Date of Admission Jan 27, 2021 at 16:05 Date of Discharge 01/29/21 Attending Physician: Rosette Drake MD Discharge Summary PROCEDURES PERFORMED DURING STAY: None ADMITTING DIAGNOSES: Acute kidney injury on CKD Stage III likely 2/2 to lisinopril Acute hyperkalemia secondary to acute kidney injury, lisinopril HTN DISCHARGE DIAGNOSES: Acute kidney injury on CKD Stage III likely 2/2 to lisinopril Acute hyperkalemia secondary to acute kidney injury, lisinopril HTN COMPLICATIONS/CHIEF COMPLAINT: Acute Kidney Failure. HISTORY OF PRESENT ILLNESS: Patient is a 51-year-old -[place] male with past medical history of hypertension, questionable kidney disease who presented to [facility] emergency room after being told to by his primary care provider at the [facility]. On 01/25/2021 the patient had outpatient labs drawn by his primary care provider. Today he went in for a routine physical and abnormal labs were reviewed with him. The patient denied any nausea, vomiting, abdominal pain, decreased urinary output, decreased appetite, palpitations, dry mouth, lightheadedness, dysuria, shortness of breath, chest pain. He states he hydrates very well during the day normally. Labs showed acute kidney injury. His provider attempted to get him in to see nephrology in [place]; however, they stated they would not be able to see him for quite some time. He was then advised to come to the emergency room for further evaluation. 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 He had an ultrasound done and was told that he would be followed up with. He has not returned to see them since and has remained on his lisinopril. HOSPITAL COURSE: In the emergency room the patient had no acute complaints. Vital signs showed s ome mild hypertension with systolic blood pressure 160 mmHg. Repeat labs were done showing a potassium of 5.2, creatinine 2.93, BUN 56. The patient did not appear dry and had no swelling in the lower extremities. ECG showed no abnormal findings. UA was ordered along with renal ultrasound. Normal saline was started. Case was discussed with nephrology [facility]. The patient was ultimately admitted under observation status with hospitalist service for further workup and treatment of acute kidney injury. Note: [facility] records from [place] were requested on admission but did not arrive prior to discharge. During his hospital stay the following issues were addressed: Acute kidney injury on CKD Stage III likely 2/2 to ACEi -[facility], continuing to hold lisinopril -Creatinine improved slowly with IVF and later while taking only PO, Baseline Cr unknown -Renal US was neg for structural abnormalities -UA neg -Nephrology consulted and will follow him up in office after discharge -Recommend to continue to hold any nephrotoxic meds after discharge, lisinopril stopped Acute hyperkalemia secondary to acute kidney injury, lisinopril- resolved -Potassium now wnl -ECG no acute changes HTN -Stop lisinopril -On amlodipine low dose DISCHARGE MEDICATIONS: Please see below. ALLERGIES: Please see below. PHYSICAL EXAMINATION ON DISCHARGE: VS: Please see below CONSTITUTIONAL: No acute distress, resting comfortably, AAO x 3 EYES: PERRLA, EOM intact HENT, MOUTH: Normocephalic, atraumatic, moist mucous membranes NECK: SUPPLE, no JVD, no lymphadenopathy, no carotid bruit CV: Regular rate and rhythm, S1S2 normal, no murmurs/rubs/gallops RESPIRATORY: Clear to auscultation bilaterally, no rales/rhonchi/wheezes GI: BS positive in 4 quadrants, soft, nontender, nondistended, no rebound or guarding, no organomegaly : Deferred MUSCULOSKELETAL: Normal ROM. No cyanosis, clubbing, swelling, joint deformity, mild nonpitting b/l lower extremity edema INTEGUMENTARY: Intact, no rashes, no lesions, no erythema NEUROLOGIC: Cranial Nerves II-XII are intact, no focal deficits PSYCHIATRIC: Mood and affect are normal LABORATORY DATA: Please see below IMAGING: Renal ultrasound: unremarkable PROGNOSIS: Good ACTIVITY: As tolerated DIET: 2 gram sodium DISPOSITION: 01 Home, Self-Care. DISCHARGE INSTRUCTIONS/ ITEMS TO FOLLOWUP ON ON OUTPATIENT: 1. Blood pressures have been doing great this admission. New medication at discharge is amlodipine 2.5 mg daily. Please do not continue lisinopril after discharge. 2. Follow up with Dr. Islas's (kidney doctor) office after discharge. The number will be provided to you. DISCHARGE CONDITION: Stable TIME SPENT ON DISCHARGE: 35 minutes. Vital Signs/I&Os Vital Signs Date Time Temp Pulse Resp B/P (MAP) Pulse Ox O2 Delivery O2 Flow Rate FiO2 01/29/21 08:45 78 138/82 01/29/21 05:47 98.2 18 100 Room Air I&O- Last 24 Hours up to 6 AM 01/29/21 06:00 Intake Total 860 ml Output Total 2700 ml Balance -1840 ml Laboratory Data Labs 24H Laboratory Tests 2 01/29/21 05:34: Nucleated Red Blood Cells % (auto) 0.0, Anion Gap 6L, Glomerular Filtration Rate 46.4L, Calcium Level 8.6, Total Bilirubin 0.4, Aspartate Amino Transf (AST/SGOT) 10, Alanine Aminotransferase (ALT/SGPT) 17, Alkaline Phosphatase 83, Total Protein 6.3L, Albumin 3.2, Albumin/Globulin Ratio 1.0 CBC/BMP Laboratory Tests 01/29/21 05:34 Discharge Medications Scheduled Amlodipine Besylate (Amlodipine Besylate) 2.5 Mg Tablet, 2.5 MG PO DAILY Brimonidine Tartrate (Alphagan P) 0.1% 5ML Drops, 1 DROP OU BID, (Reported) Cholecalciferol (Vitamin D3) (Vitamin D3) 1,000 Unit Tablet, 1,000 UNITS PO DAILY, (Reported) Dorzolamide HCl (Dorzolamide HCl) 2% 10ML Drops, 1 DROP OU BID, (Reported) Latanoprost (Xalatan) 0.005% 2.5ML Drops, 1 DROP OU QHS, (Reported) Allergies Coded Allergies: No Known Allergies (Unverified , 05/17/18) Rosette Drake MD Jan 29, 2021 17:24
== END 2021-01-29 11:34 | disposition home or self-care (01) ==
LOC: M ED 16:04 → M ED INP 16:05 → M MS5PR 23:53
PROVIDERS: ADMIT Internal Medicine; ATTEND Internal Medicine
DX: N17.9 Acute kidney failure, unspecified (principal); N18.30 Chronic kidney disease, stage 3 unspecified; E87.5 Hyperkalemia; I12.9 Hypertensive chronic kidney disease with stage 1 through stage 4 chronic kidney disease, or unspecified chronic kidney disease; Z79.899 Other long term (current) drug therapy
CPT/HCPCS: 36415; 76775; 80048; 80053; 81001; 82570; 84156; 85025; 85027; 85610; 85730; 87631; 93005; 96360; 96361; 99285; J1644

== ENCOUNTER → 2021-02-16 | Outpatient (CLI) | payer OTHER ==
[~2021-02-16] MED LIST changes: +AMLO25TA PO; +BRIM1OPD OU; +D31000TA2 PO; +DORZ2SOL4 OU; +LATA0.0015; +LISI20TA33 PO; -METHACHOLINE KIT (J7674) INH ONE; +XALA0.007 OU; +vitamin D
[2021-02-16 13:56] LABS: CALCIUM LEVEL 9.3 MG/DL (8.5-10.1); CREATININE FOR GFR 1.87 MG/DL (0.70-1.30); GLOMERULAR FILTRATION RATE 49.6 (>56); POTASSIUM SERUM 3.8 MEQ/L (3.5-5.1); URIC ACID 6.1 MG/DL (3.5-7.2)
== END ==
LOC: M PLALAB 10:59
PROVIDERS: ATTEND Family Medicine
DX: N17.9 Acute kidney failure, unspecified (principal); M10.00 Idiopathic gout, unspecified site

== ENCOUNTER → 2021-02-23 | Outpatient (CLI) | payer OTHER ==
[2021-02-23 13:31] LABS: C REACTIVE PROTEIN QUANTITATIV 3.55 MG/DL (0.00-0.30); RHEUMATOID FACTOR QUANT < 10.0 IU/ML (<15.0)
[2021-02-25 00:07] LABS: ANA (HEP2) Negative (.); CYCLIC CITRULLINATED PEPTIDE 6 units (0-19); TISSUE TRANSGLUTAMINASE IgA <2 U/mL (0-3); TISSUE TRANSGLUTAMINASE IgG 5 U/mL (0-5); UNITSIGA FOR GLIADIN IGA 4 units (0-19); UNITSIGG FOR GLIADIN IGG 2 units (0-19)
== END ==
LOC: M PLALAB 11:21
PROVIDERS: ATTEND Family Medicine
DX: M25.571 Pain in right ankle and joints of right foot (principal); M25.572 Pain in left ankle and joints of left foot

== ENCOUNTER → 2021-04-27 | Outpatient (CLI) | payer OTHER ==
[2021-04-27 13:17] LABS: BASO # 0.1 10^3/uL (0.0-0.2); BASO % 0.9 % (0.0-1.0); EOS # 0.1 10^3/uL (0.0-0.5); EOS % 1.9 % (0.0-3.0); HEMATOCRIT 41.3 % (42.0-52.0); HEMOGLOBIN 13.3 g/dl (13.5-17.5); LYMPH # 1.7 10^3/uL (1.5-5.0); LYMPH % 29.2 % (24.0-44.0); MEAN CORPUSCULAR HEMOGLOBIN 29.4 pg (27.0-33.0); MEAN CORPUSCULAR HGB CONC 32.2 g/dl (32.0-36.5); MEAN CORPUSCULAR VOLUME 91.4 fl (80.0-96.0); MONO # 0.5 10^3/uL (0.0-0.8); MONO % 9.4 % (2.0-8.0); NEUTROPHILS # 3.4 10^3/uL (1.5-8.5); NEUTROPHILS % 58.3 % (36.0-66.0); PLATELET COUNT, AUTOMATED 310 10^3/uL (150-450); RED BLOOD COUNT 4.52 10^6/uL (4.30-6.10); WHITE BLOOD COUNT 5.8 10^3/uL (4.0-10.0)
[2021-04-27 13:46] LABS: BLOOD UREA NITROGEN 14 MG/DL (7-18); CALCIUM LEVEL 9.2 MG/DL (8.5-10.1); CARBON DIOXIDE LEVEL 26 MEQ/L (21-32); CHLORIDE LEVEL 109 MEQ/L (98-107); GLOMERULAR FILTRATION RATE > 60.0 (>56); GLUCOSE, FASTING 101 MG/DL (70-100); POTASSIUM SERUM 4.4 MEQ/L (3.5-5.1); SODIUM LEVEL 143 MEQ/L (136-145); URIC ACID 4.8 MG/DL (3.5-7.2)
== END ==
LOC: M PLALAB 09:11
PROVIDERS: ATTEND Family Medicine
DX: I12.9 Hypertensive chronic kidney disease with stage 1 through stage 4 chronic kidney disease, or unspecified chronic kidney disease (principal); M10.9 Gout, unspecified; N18.9 Chronic kidney disease, unspecified

== ENCOUNTER → 2022-08-22 | Outpatient (CLI) | payer OTHER ==
[~2022-08-22] MED LIST changes: -D31000TA2 PO; +VITA100093 PO
[2022-08-22 15:14] LABS: BASO % 0.5 % (0.0-1.0); EOS # 0.1 10^3/uL (0.0-0.5); EOS % 1.3 % (0.0-3.0); HEMATOCRIT 45.3 % (42.0-52.0); LYMPH # 1.5 10^3/uL (1.5-5.0); LYMPH % 27.6 % (24.0-44.0); MEAN CORPUSCULAR HEMOGLOBIN 30.5 pg (27.0-33.0); MEAN CORPUSCULAR HGB CONC 33.1 g/dl (32.0-36.5); MEAN CORPUSCULAR VOLUME 92.1 fl (80.0-96.0); MONO # 0.5 10^3/uL (0.0-0.8); MONO % 9.1 % (2.0-8.0); NEUTROPHILS # 3.4 10^3/uL (1.5-8.5); NEUTROPHILS % 61.1 % (36.0-66.0); PLATELET COUNT, AUTOMATED 358 10^3/uL (150-450); RED BLOOD COUNT 4.92 10^6/uL (4.30-6.10); WHITE BLOOD COUNT 5.5 10^3/uL (4.0-10.0)
[2022-08-22 15:47] LABS: URIC ACID 5.4 MG/DL (3.7-9.2)
[2022-08-22 15:50] LABS: ALKALINE PHOSPHATASE 115 U/L (46-116); ALT/SGPT 25 U/L (7.0-40); AST/SGOT 17 U/L (<34); BILIRUBIN,TOTAL 0.4 MG/DL (0.3-1.2); BLOOD UREA NITROGEN 21 MG/DL (9-23); CALCIUM LEVEL 9.6 MG/DL (8.5-10.1); CARBON DIOXIDE LEVEL 25 MMOL/L (20-31); CHLORIDE LEVEL 107 MMOL/L (98-107); CHOLESTEROL LEVEL 167 MG/DL (<200); CHOLESTEROL RISK RATIO 3.35 (<5); CREATININE FOR GFR 1.78 MG/DL (0.70-1.30); GLOMERULAR FILTRATION RATE 52.3 (>56); GLUCOSE, FASTING 100 MG/DL (60-100); HDL CHOLESTEROL 49.8 MG/DL (>40); LDL CHOLESTEROL 105.2 MG/DL (<100); NON-HDL-C 117.2 MG/DL; POTASSIUM SERUM 4.1 MMOL/L (3.5-5.1); SODIUM LEVEL 139 MMOL/L (136-145); TOTAL PROTEIN 7.5 G/DL (5.7-8.2); TRIGLYCERIDES LEVEL 60 MG/DL (<150)
[2022-08-22 15:52] LABS: THYROID STIMULATING HORMONE 3.088 uIU/ML (0.55-4.78); TOTAL 25(OH) VITAMIN D 33.5 NG/ML (20.0-100.0)
[2022-08-22 16:09] LABS: HEPATITIS B SURFACE ANTIGEN NEGATIVE (NEGATIVE)
[2022-08-22 16:22] LABS: HIV 1&2 SCREEN NEGATIVE (NEGATIVE)
[2022-08-22 16:30] LABS: HEPATITIS C VIRUS ABY INDEX 0.1 INDEX (<0.8)
[2022-08-22 16:31] LABS: HEPATITIS B CORE ANTIBODY IGM NEGATIVE (NEGATIVE)
[2022-08-22 16:34] LABS: GC DNA AMPLIFICATION NEGATIVE (NEGATIVE)
[2022-08-23 06:09] LABS: HSV TYPE I IgG SPECIFIC >62.20 index (0.00-0.90); HSV TYPE II IgG SPECIFIC <0.91 index (0.00-0.90)
== END ==
LOC: M PLALAB 10:57
PROVIDERS: ATTEND Nurse Practitioner Adult Health
DX: I12.9 Hypertensive chronic kidney disease with stage 1 through stage 4 chronic kidney disease, or unspecified chronic kidney disease (principal); E66.9 Obesity, unspecified; E55.9 Vitamin D deficiency, unspecified; M10.9 Gout, unspecified; Z11.3 Encounter for screening for infections with a predominantly sexual mode of transmission

== ENCOUNTER → 2023-01-09 | Outpatient (CLI) | payer OTHER | LOC: M PLAIMG 10:51 | PROVIDERS: ATTEND Nurse Practitioner Family | DX: R51.9 Headache, unspecified (principal); M54.2 Cervicalgia ==

== ENCOUNTER → 2023-04-05 | Outpatient (CLI) | payer OTHER ==
[2023-04-05 18:23] LABS: BASO % 0.6 % (0.0-1.0); EOS # 0.1 10^3/uL (0.0-0.5); EOS % 1.3 % (0.0-3.0); HEMATOCRIT 42.8 % (42.0-52.0); HEMOGLOBIN 13.9 g/dl (13.5-17.5); LYMPH # 1.5 10^3/uL (1.5-5.0); LYMPH % 29.3 % (24.0-44.0); MEAN CORPUSCULAR HEMOGLOBIN 30.5 pg (27.0-33.0); MEAN CORPUSCULAR HGB CONC 32.5 g/dl (32.0-36.5); MEAN CORPUSCULAR VOLUME 94.1 fl (80.0-96.0); MONO # 0.5 10^3/uL (0.0-0.8); MONO % 9.2 % (2.0-8.0); NEUTROPHILS # 3.1 10^3/uL (1.5-8.5); NEUTROPHILS % 59.4 % (36.0-66.0); PLATELET COUNT, AUTOMATED 313 10^3/uL (150-450); RED BLOOD COUNT 4.55 10^6/uL (4.30-6.10); WHITE BLOOD COUNT 5.2 10^3/uL (4.0-10.0)
[2023-04-05 18:49] LABS: BILIRUBIN,TOTAL 0.4 MG/DL (0.3-1.2); CALCIUM LEVEL 9.4 MG/DL (8.5-10.1); CREATININE FOR GFR 1.87 MG/DL (0.70-1.30); GLOMERULAR FILTRATION RATE 49.2 (>56); POTASSIUM SERUM 4.4 MMOL/L (3.5-5.1); TOTAL PROTEIN 7.7 G/DL (5.7-8.2)
== END ==
LOC: M PLAIMG 15:06
PROVIDERS: ATTEND Family Medicine
DX: Z01.818 Encounter for other preprocedural examination (principal); I12.9 Hypertensive chronic kidney disease with stage 1 through stage 4 chronic kidney disease, or unspecified chronic kidney disease; N18.9 Chronic kidney disease, unspecified

== ENCOUNTER → 2023-08-20 | Outpatient (CLI) | payer OTHER ==
[2023-08-20 13:25] LABS: BASO % 0.8 % (0.0-1.0); EOS # 0.1 10^3/uL (0.0-0.5); EOS % 1.5 % (0.0-3.0); HEMATOCRIT 43.2 % (42.0-52.0); HEMOGLOBIN 14.1 g/dl (13.5-17.5); LYMPH # 1.7 10^3/uL (1.5-5.0); LYMPH % 35.9 % (24.0-44.0); MEAN CORPUSCULAR HEMOGLOBIN 30.7 pg (27.0-33.0); MEAN CORPUSCULAR HGB CONC 32.6 g/dl (32.0-36.5); MEAN CORPUSCULAR VOLUME 94.1 fl (80.0-96.0); MONO # 0.4 10^3/uL (0.0-0.8); MONO % 9.2 % (2.0-8.0); NEUTROPHILS # 2.5 10^3/uL (1.5-8.5); NEUTROPHILS % 52.6 % (36.0-66.0); PLATELET COUNT, AUTOMATED 242 10^3/uL (150-450); RED BLOOD COUNT 4.59 10^6/uL (4.30-6.10); WHITE BLOOD COUNT 4.8 10^3/uL (4.0-10.0)
[2023-08-20 13:33] LABS: THYROID STIMULATING HORMONE 3.637 uIU/ML (0.55-4.78); TOTAL 25(OH) VITAMIN D 39.4 NG/ML (20.0-100.0)
[2023-08-20 13:36] LABS: FREE T4 1.01 NG/DL (0.89-1.76)
[2023-08-20 13:37] LABS: ALBUMIN 3.8 G/DL (3.2-5.2); BILIRUBIN,TOTAL 0.4 MG/DL (0.3-1.2); CHOLESTEROL RISK RATIO 3.11 (<5); CREATININE FOR GFR 1.58 MG/DL (0.70-1.30); GLOMERULAR FILTRATION RATE 59.7 (>56); HDL CHOLESTEROL 48.8 MG/DL (>40); LDL CHOLESTEROL 91.2 MG/DL (<100); NON-HDL-C 103.2 MG/DL; POTASSIUM SERUM 4.4 MMOL/L (3.5-5.1); TOTAL PROTEIN 6.9 G/DL (5.7-8.2)
== END ==
LOC: M PLALAB 09:39
PROVIDERS: ATTEND Nurse Practitioner Adult Health
DX: I12.9 Hypertensive chronic kidney disease with stage 1 through stage 4 chronic kidney disease, or unspecified chronic kidney disease (principal); E55.9 Vitamin D deficiency, unspecified; E66.9 Obesity, unspecified; N18.9 Chronic kidney disease, unspecified

== ENCOUNTER → 2023-09-04 | Outpatient (REF) | payer OTHER ==
[2023-09-04 18:36] LABS: BILIRUBIN,TOTAL 0.5 MG/DL (0.3-1.2); CALCIUM LEVEL 9.7 MG/DL (8.5-10.1); CHOLESTEROL RISK RATIO 3.98 (<5); CREATININE FOR GFR 1.84 MG/DL (0.70-1.30); GLOMERULAR FILTRATION RATE 50.1 (>56); HDL CHOLESTEROL 44.4 MG/DL (>40); LDL CHOLESTEROL 112.2 MG/DL (<100); NON-HDL-C 132.6 MG/DL; POTASSIUM SERUM 5.4 MMOL/L (3.5-5.1); TOTAL PROTEIN 7.5 G/DL (5.7-8.2)
[2023-09-04 18:38] LABS: FREE T4 1.15 NG/DL (0.89-1.76); THYROID STIMULATING HORMONE 3.573 uIU/ML (0.55-4.78)
== END ==
LOC: M LAB REF 17:15
PROVIDERS: ATTEND Nurse Practitioner Adult Health
DX: I12.9 Hypertensive chronic kidney disease with stage 1 through stage 4 chronic kidney disease, or unspecified chronic kidney disease (principal); E66.9 Obesity, unspecified; M10.9 Gout, unspecified

== ENCOUNTER → 2023-09-14 | Outpatient (CLI) | payer OTHER ==
[2023-09-14 13:37] LABS: ALBUMIN 4.1 G/DL (3.2-5.2); BILIRUBIN,DIRECT 0.2 MG/DL (<0.4); BILIRUBIN,TOTAL 0.7 MG/DL (0.3-1.2); TOTAL PROTEIN 7.4 G/DL (5.7-8.2)
== END ==
LOC: M PLALAB 10:36
PROVIDERS: ATTEND Nurse Practitioner Adult Health
DX: R94.5 Abnormal results of liver function studies (principal)

== ENCOUNTER → 2025-02-23 | Outpatient (CLI) | payer OTHER ==
[~2025-02-23] MED LIST changes: -BRIM1OPD OU; +BRIM5DRO25 OU
[2025-02-23 13:42] LABS: BASO # 0.0 10^3/uL (0.0-0.2); BASO % 0.5 % (0.0-1.0); EOS # 0.1 10^3/uL (0.0-0.5); EOS % 1.6 % (0.0-3.0); LYMPH # 1.3 10^3/uL (1.5-5.0); LYMPH % 35.4 % (24.0-44.0); MONO # 0.3 10^3/uL (0.0-0.8); MONO % 8.7 % (2.0-8.0); NEUTROPHILS # 2.0 10^3/uL (1.5-8.5); NEUTROPHILS % 53.5 % (36.0-66.0); PLATELET COUNT, AUTOMATED 328 10^3/uL (150-450)
[2025-02-23 14:10] LABS: ALT/SGPT 29.0 U/L (7.0-40); AST/SGOT 19.0 U/L (<34); CALCIUM LEVEL 9.1 MG/DL (8.5-10.1); CARBON DIOXIDE LEVEL 25.0 MMOL/L (20-31); CHLORIDE LEVEL 108.0 MMOL/L (98-107); CREATININE FOR GFR 2.02 MG/DL (0.70-1.30); GLOMERULAR FILTRATION RATE 38.5 (>56); POTASSIUM SERUM 5.1 MMOL/L (3.5-5.1); SODIUM LEVEL 141.0 MMOL/L (136-145)
== END ==
LOC: M PLALAB 09:15
PROVIDERS: ATTEND Nurse Practitioner Adult Health
DX: I12.9 Hypertensive chronic kidney disease with stage 1 through stage 4 chronic kidney disease, or unspecified chronic kidney disease (principal)